=== PATIENT | female | born 1970 | race Caucasian/White ===

== ENCOUNTER 2017-12-18 10:51 | Emergency (ER) | payer MEDICARE, BC ==
[2017-12-18] MEDS ORDERED: Albuterol/Ipratropium 3.0-0.5 MG/3 ML Neb Soln NEB ONE (11:42)
[2017-12-18] MEDS ORDERED: Glucagon,Human Recombinant 1 MG Vial IVPUSH ONE (11:57)
[2017-12-18 12:11] LABS: CHLORIDE,CL 100 mmol/L (101-111); SODIUM,NA 138 mmol/L (135-145)
[2017-12-18 14:19] VITALS: BP 90/54
--- NOTE | 2017-12-21 04:35 | EDM.PDOC ---
Scribed by Cady Pollard 12/18/17 [id number] for Letitia Hay PA-C ED HPI GENERAL MEDICAL PROBLEM - General Chief Complaint: Respiratory Problem Stated Complaint: cold [id number] Time Seen by Provider: 12/18/17 11:30 Source of Information: Reports: Patient, RN, RN Notes Reviewed History Limitations: Reports: No Limitations - History of Present Illness INITIAL COMMENTS - FREE TEXT/NARRATIVE: Patient presents to ER with mouth swelling and difficulty swallowing accompanied by some shortness of breath and chest tightness. She has tried Benadryl and Albuterol inhaler. She has significant surgical history and in the past has had esophageal dilatation. Her last one was in August and she has it done every 3 months. She had one episode of watery emesis today. She says that since this morning she has been having more saliva and feels it is more swallowing saliva. The chest tightness in the past felt like her asthma so that is why she tried the Albuterol. She denies chills or sweats. She has had some subjective feelings of warmth. She has chronic nausea and this is unchanged. She has not had diarrhea or constipation. She also takes Reglan and Zofran every day. Has feeding tube. Notes supplemental feedings daily. Has been eating solid food until today. 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 Treatments, Other Medication(s) (Benadryl) Abdominal Pain Score (Numeric/FACES): 7 - Related Data Allergies Allergy/AdvReac Type Severity Reaction Status Date / Time erythromycin base Allergy Rash Verified 05/19/15 19:18 latex Allergy Rash Verified 05/19/15 19:18 magnesium carbonate Allergy Wheezing Verified 05/19/15 19:18 naproxen [From Naprosyn] Allergy Rash Verified 05/19/15 19:18 prochlorperazine edisylate Allergy Other Verified 05/19/15 19:18 [From Compazine] prochlorperazine maleate Allergy Other Verified 05/19/15 19:18 [From Compazine] Home Meds: Home Meds Acetaminophen 500 mg PO Q6H 08/28/14 [History] Albuterol Sulfate 1.25 mg INH Q4H PRN 08/28/14 [History] Albuterol Sulfate [Albuterol Sulfate HFA] 8.5 gm INH Q4H PRN 08/28/14 [History] Budesonide [Pulmicort] 0.05 mg INH BID PRN 08/28/14 [History] Cholecalciferol (Vitamin D3) [Vitamin D] 50,000 unit PO DAILY 08/28/14 [History] Cyanocobalamin (Vitamin B-12) [Cyanocobalamin Injection] 1,000 mcg SQ ACDINNER 08/28/14 [History] Fluticasone Propionate [Flonase] 50 mcg INH DAILY 08/28/14 [History] Gabapentin [Neurontin] 600 mg PO TID 08/28/14 [History] Levothyroxine [Synthroid] 50 mcg DAILY 08/28/14 [History] Nutritional Supplement [Osmolite 1.5 Siddhartha] 80 ml PO QID 08/28/14 [History] Whey Protein Isolate [Beneprotein] 1 each PO TID 08/28/14 [History] diphenhydrAMINE [Benadryl] 75 mg PO DAILY 08/28/14 [History] fentaNYL [Duragesic] 100 mcg TOP Q72H 08/28/14 [History] LORazepam 1 mg PO QID 02/22/16 [History] Ondansetron [Zofran ODT] 4 mg PO Q6H 02/22/16 [History] Potassium Chloride [Klor-Con] 20 meq PO TID 02/22/16 [History] oxyCODONE 5 mg PO Q4H 02/22/16 [History] Past Medical History Other Cardiovascular History: low blood pressure Respiratory History: Reports: Asthma Gastrointestinal History: Reports: Other (See Below) (gastrectomy. Esophageal dilatation.) Musculoskeletal History: Reports: Other (See Below) (chronic pain) - Past Surgical History Other GI Surgeries/Procedures: Spleenectomy; Gastrostomy Social & Family History - Tobacco Use Smoking Status *Q: Never Smoker Second Hand Smoke Exposure: No - Alcohol Use Days Per Week of Alcohol Use: 0 - Recreational Drug Use Recreational Drug Use: No - Living Situation & Occupation Living situation: Reports: Occupation: Unemployed ED ROS GENERAL - Review of Systems Review Of Systems: ROS reveals no pertinent complaints other than HPI. ED EXAM, GENERAL - Physical Exam Exam: See Below Exam Limited By: No Limitations General Appearance: Alert, WD/WN, No Apparent Distress, Cachetic Eye Exam: Bilateral Eye: EOMI, Normal Inspection, PERRL Ears: Normal External Exam, Normal TMs Nose: Normal Inspection, Normal Mucosa Throat/Mouth: Other (erythematous posterior pharynx without exudate. No tongue swelling. No airway swelling. ) Head: Atraumatic, Normocephalic Neck: Normal Inspection, Lymphadenopathy (L) (anterior cervical ), Lymphadenopathy (R) (anterior cervical) Respiratory/Chest: No Respiratory Distress, Lungs Clear Cardiovascular: Regular Rate, Rhythm, No Murmur GI/Abdominal: Other (thin. PE tube in place. Nontender. ) (Female) Exam: Deferred Rectal (Female) Exam: Deferred Back Exam: Normal Inspection Extremities: Normal Inspection, No Pedal Edema Neurological: Alert, Oriented Psychiatric: Normal Affect, Normal Mood Skin Exam: Warm, Dry, Intact Course - Vital Signs Last Recorded V/S: Last Vital Signs Temp 99.4 F 12/18/17 11:20 Pulse 89 12/18/17 14:12 Resp 16 12/18/17 14:12 BP 90/54 L 12/18/17 14:12 Pulse Ox 97 12/18/17 14:12 - Orders/Labs/Meds Labs: Laboratory Tests 12/18/17 12/18/17 Range/Units 11:46 11:46 WBC 6.5 (5.0-10.0) 10^3/uL RBC 4.29 (4.2-5.4) 10^6/uL Hgb 13.8 (12.0-16.0) g/dL Hct 41.2 (37.0-47.0) % MCV 96.0 (80-100) fL MCH 32.2 (27.0-34.0) pg MCHC 33.5 (33.0-35.0) g/dL Plt Count 285 (150-450) 10^3/uL Neut % (Auto) 68.2 (42.2-75.2) % Lymph % (Auto) 22.5 (20.5-50.1) % [place] % (Auto) 8.3 H (2-8) % Eos % (Auto) 0.8 L (1.0-3.0) % Baso % (Auto) 0.2 (0.0-1.0) % Sodium 138 (135-145) mmol/L Potassium 4.3 (3.6-5.0) mmol/L Chloride 100 L (101-111) mmol/L Carbon Dioxide 30.0 (21.0-31.0) mmol/L Anion Gap 12.3 BUN 6 L (7-18) mg/dL Creatinine 0.6 (0.6-1.3) mg/dL Est Cr Clr Drug Dosing 87.98 mL/min Estimated GFR (MDRD) > 60 BUN/Creatinine Ratio 10.00 Glucose 94 (74-105) mg/dL Calcium 9.7 (8.4-10.2) mg/dl Total Bilirubin 1.0 (0.2-1.0) mg/dL AST 37 (10-42) IU/L ALT 19 (10-60) IU/L Alkaline Phosphatase 123 H (42-121) IU/L Troponin I < 0.02 (0.00-0.02) ng/ml Total Protein 6.8 (6.7-8.2) g/dl Albumin 3.5 (3.2-5.5) g/dl Globulin 3.3 Albumin/Globulin Ratio 1.06 Meds: Medications Discontinued Medications Generic Name Dose Route Start Last Admin Trade Name Freq PRN Reason Stop Dose Admin Albuterol/Ipratropium 3 ml 12/18/17 11:42 12/18/17 11:50 Duoneb 3.0-0.5 Mg/3 Ml NEB 12/18/17 11:43 3 ml ONETIME ONE Administration Glucagon 1 mg 12/18/17 11:57 12/18/17 12:06 Glucagen IVPUSH 12/18/17 11:58 1 mg ONETIME ONE Administration - Re-Assessments/Exams Free Text/Narrative Re-Assessment/Exam: 12/21/17 04:33 Tolerating secretions and small sips water. No signs of angio edema apparent. Departure - Departure Time of Disposition: 14:08 Disposition: Home, Self-Care 01 Condition: Fair Clinical Impression: Esophageal stricture, Allergic sinusitis, S/P gastric bypass Gastroesophageal reflux disease Qualifiers: Esophagitis presence: without esophagitis Qualified Code(s): K21.9 - Gastro- esophageal reflux disease without esophagitis - Discharge Information Instructions: Allergic Rhinitis, Esophageal Stricture Forms: ED Department Discharge Additional Instructions: Prednisone 20mg today then 10mg for 3 days follow up with Primary on Wednesday Urgent follow up if symptoms worsen Increase fluids through Peg tube I have read and agree with the documentation that has been completed regarding this visit. By signing this record, I attest that the documentation was completed in my physical presence and is an accurate record of the encounter.
== END 2017-12-18 14:16 | disposition home or self-care (01) ==
LOC: DL.ED 10:51
DX: K22.2 Esophageal obstruction (principal); J30.9 Allergic rhinitis, unspecified; K21.9 Gastro-esophageal reflux disease without esophagitis; Z98.84 Bariatric surgery status; Z79.899 Other long term (current) drug therapy; Z88.1 Allergy status to other antibiotic agents; Z91.040 Latex allergy status; Z88.8 Allergy status to other drugs, medicaments and biological substances
CPT/HCPCS: 36415; 80053; 84484; 85025; 87081; 87430; 96374; 99284; J1610

== ENCOUNTER 2019-12-02 18:20 | Emergency (ER) | payer BC, MEDICARE ==
[2019-12-02] MEDS ORDERED: Amoxicillin/Clavulanate K 400-57 MG/5 ML Susp 100 ML Bottle PO ONE (18:21)
[2019-12-02 18:41] VITALS: BP 123/89; PULSE 115
--- NOTE | 2019-12-02 19:33 | EDM.PDOC ---
ED HPI GENERAL MEDICAL PROBLEM - General Chief Complaint: General Stated Complaint: SHORTNESS BREATH, TIGHTNESS OF CHEST, JTUBE LEAK. Time Seen by Provider: 12/02/19 19:00 Source of Information: Reports: Patient, RN History Limitations: Reports: No Limitations - History of Present Illness INITIAL COMMENTS - FREE TEXT/NARRATIVE: ED with c/o of sore throat, feels swollen, has noticed this am leaking around J tube lood like "stool", Reports leaking around tube since replaced a year ago. Patient hx of gastric bypass that went wrong and multiple complications since. Essentially complete gastrectomy, still takes some oral though difficulty swallowing. Due to return to [place] for recheck in 2 weeks. Hx of esophageal strictures last dilated in June. Was scoped in August and told was fine. Chin red, reports some drooling at times. Denies leaving house for over past 2 weeks, lives with spouse who also reported to have limited outside interaction. Wearing poor fitting mask. Noted hx of latex allergy and mask has elastic straps. Occasional cough from reflux. has no local primary care. States has not been seen in or [place]. Receives narcotic refills from [facility]. Tried nebulizer at home and did not seem to help much. Generalized Pain Score (Numeric/FACES): 3 - Related Data Allergies Allergy/AdvReac Type Severity Reaction Status Date / Time erythromycin base Allergy Rash Verified 12/02/19 18:40 latex Allergy Rash Verified 12/02/19 18:40 magnesium carbonate Allergy Wheezing Verified 12/02/19 18:40 naproxen [From Naprosyn] Allergy Rash Verified 12/02/19 18:40 prochlorperazine edisylate Allergy Other Verified 12/02/19 18:40 [From Compazine] prochlorperazine maleate Allergy Other Verified 12/02/19 18:40 [From Compazine] Home Meds: Home Meds Acetaminophen 500 mg PO Q6H 08/28/14 [History] Albuterol Sulfate 1.25 mg INH Q4H PRN 08/28/14 [History] Albuterol Sulfate [Albuterol Sulfate HFA] 8.5 gm INH Q4H PRN 08/28/14 [History] Budesonide [Pulmicort] 0.05 mg INH BID PRN 08/28/14 [History] Cholecalciferol (Vitamin D3) [Vitamin D] 50,000 unit PO DAILY 08/28/14 [History] Cyanocobalamin (Vitamin B-12) [Cyanocobalamin Injection] 1,000 mcg SQ ACDINNER 08/28/14 [History] Fluticasone Propionate [Flonase] 50 mcg INH DAILY 08/28/14 [History] Gabapentin [Neurontin] 600 mg PO TID 08/28/14 [History] Levothyroxine [Synthroid] 50 mcg DAILY 08/28/14 [History] Nutritional Supplement [Osmolite 1.5 Siddhartha] 80 ml PO QID 08/28/14 [History] Whey Protein Isolate [Beneprotein] 1 each PO TID 08/28/14 [History] diphenhydrAMINE [Benadryl] 75 mg PO DAILY 08/28/14 [History] fentaNYL [Duragesic] 100 mcg TOP Q72H 08/28/14 [History] LORazepam 1 mg PO QID 02/22/16 [History] Ondansetron [Zofran ODT] 4 mg PO Q6H 02/22/16 [History] Potassium Chloride [Klor-Con] 20 meq PO TID 02/22/16 [History] oxyCODONE 5 mg PO Q4H 02/22/16 [History] Past Medical History Other Cardiovascular History: low blood pressure Respiratory History: Reports: Asthma Gastrointestinal History: Reports: Other (See Below) Musculoskeletal History: Reports: Other (See Below) Endocrine/Metabolic History: Reports: Hypothyroidism - Past Surgical History HEENT Surgical History: Reports: Adenoidectomy, Tonsillectomy Other GI Surgeries/Procedures: Spleenectomy; Gastrostomy Female Surgical History: Reports: Section, Tubal Ligation Social & Family History - Tobacco Use Smoking Status *Q: Never Smoker - Caffeine Use Caffeine Use: Reports: Coffee, Soda, Tea - Recreational Drug Use Recreational Drug Use: No - Living Situation & Occupation Living situation: Reports: Occupation: Unemployed ED ROS GENERAL - Review of Systems Review Of Systems: Comprehensive ROS is negative, except as noted in HPI. ED EXAM, GENERAL - Physical Exam Exam: See Below Exam Limited By: No Limitations General Appearance: Alert, Anxious, Cachetic Eye Exam: Bilateral Eye: EOMI Ears: Normal External Exam Nose: Normal Inspection Throat/Mouth: No Airway Compromise, Other (dry) Head: Atraumatic, Normocephalic Neck: Normal Inspection. No: Lymphadenopathy (L), Lymphadenopathy (R) Respiratory/Chest: No Respiratory Distress, Lungs Clear, Other (rare bronchial cough) Cardiovascular: Normal Peripheral Pulses, Regular Rate, Rhythm, Tachycardia GI/Abdominal: Normal Bowel Sounds, Soft, Other (J tube site red moist excoriated ). No: Distended, Tender Extremities: Normal Range of Motion Neurological: Alert, Oriented, Normal Cognition Skin Exam: Other (chin pink, dry, lips dry, Jtube site moist no obvious seepage around tube, no discharge, yeast type appearance. no dressing between stoma and tube. ) Course - Vital Signs Last Recorded V/S: Last Vital Signs Temp 97.1 F 12/02/19 18:40 Pulse 115 H 12/02/19 18:40 Resp 16 12/02/19 18:40 BP 123/89 12/02/19 18:40 Pulse Ox 100 12/02/19 18:40 - Orders/Labs/Meds Orders: Active Orders 24 hr Category Date Time Status Glucose [Blood Glucose Check, Bedside] [RC] ONETIME Care 12/02/19 20:57 Active CULTURE BLOOD [BC] Stat Lab 12/02/19 19:15 Results CULTURE BLOOD [BC] Stat Lab 12/02/19 19:20 Received Blood Culture x2 Reflex Set [OM.PC] Stat Oth 12/02/19 19:05 Ordered Labs: Laboratory Tests 12/02/19 12/02/19 12/02/19 Range/Units 19:15 19:15 19:15 WBC 10.8 H (5.0-10.0) 10^3/uL RBC 3.99 L (4.2-5.4) 10^6/uL Hgb 12.9 (12.0-16.0) g/dL Hct 37.3 (37.0-47.0) % MCV 93.5 (80-100) fL MCH 32.3 (27.0-34.0) pg MCHC 34.6 (33.0-35.0) g/dL Plt Count 285 (150-450) 10^3/uL Neut % (Auto) 62.5 (42.2-75.2) % Lymph % (Auto) 25.6 (20.5-50.1) % [place] % (Auto) 10.8 H (2-8) % Eos % (Auto) 0.8 L (1.0-3.0) % Baso % (Auto) 0.3 (0.0-1.0) % Sodium 136 (136-145) mmol/L Potassium 3.5 (3.5-5.1) mmol/L Chloride 98 (98-107) mmol/L Carbon Dioxide 24 (21-32) mmol/L Anion Gap 17.5 H (7-13) mEq/L BUN 13 (7-18) mg/dL Creatinine 0.69 (0.55-1.02) mg/dL Est Cr Clr Drug Dosing 63.14 mL/min Estimated GFR (MDRD) > 60 BUN/Creatinine Ratio 18.8 (No establ ref range) Glucose 73 L (74-99) mg/dL Lactic Acid 1.4 (0.4-2.0) mmol/L Calcium 8.7 (8.5-10.1) mg/dL Magnesium 1.4 L (1.8-2.4) mg/dL Total Bilirubin 0.3 (0.2-1.0) mg/dL AST 27 (15-37) U/L ALT 31 (14-59) U/L Alkaline Phosphatase 139 H (46-116) U/L C-Reactive Protein 5.1 H (0.0-0.9) mg/dL Total Protein 6.0 L (6.4-8.2) g/dL Albumin 3.1 L (3.4-5.0) g/dL Globulin 2.9 Albumin/Globulin Ratio 1.07 Amylase 32 (25-115) U/L Lipase 68 L (73-393) U/L Meds: Medications Discontinued Medications Generic Name Dose Route Start Last Admin Trade Name Freq PRN Reason Stop Dose Admin Amoxicillin/Clavulanate Potassium Confirm 12/02/19 21:40 12/02/19 22:19 Augmentin 400 Mg/5 Ml Susp Administered 12/02/19 21:41 Not Given Dose 8,000 mg .ROUTE .STK-MED ONE Diphenhydramine HCl 25 mg 12/02/19 19:52 12/02/19 20:03 Benadryl IVPUSH 12/02/19 19:53 25 mg ONETIME ONE Administration Sodium Chloride 1,000 mls @ 500 mls/hr 12/02/19 19:53 12/02/19 20:05 Normal Saline IV 12/02/19 21:52 500 mls/hr .BOLUS ONE Administration Iopamidol 100 ml 12/02/19 20:12 12/02/19 20:19 Isovue-300 (61%) IVPUSH 12/02/19 20:13 75 ml ONETIME ONE Administration Methylprednisolone Sodium Succinate 62.5 mg 12/02/19 20:45 12/02/19 20:56 Solu-Medrol IVPUSH 12/02/19 20:46 62.5 mg ONETIME ONE Administration - Radiology Interpretation Free Text/Narrative:: CXR clear see report, CT abdomen and pelvis See report. Noted early LLL pneumonia. - Re-Assessments/Exams Free Text/Narrative Re-Assessment/Exam: 12/02/19 20:47 Patient reporting no improvement with benadryl throat feel very tight swollen. Discussed risks involved with steroids and suprression of immune system and being placed at higher risk Patient verbalizes understanding and states wants steroid. Reports improvement, calmer, Continues to talk full sentences, Rare cough. IV fluid infused Ct not demonstrating and obvious fistula. No drainage noted at tube site. Departure - Departure Time of Disposition: 21:27 Disposition: Home, Self-Care 01 Condition: Fair Clinical Impression: Yeast dermatitis, Hx of gastric bypass, History of gastrectomy, Jejunostomy tube present LLL pneumonia Qualifiers: Pneumonia type: due to unspecified organism Qualified Code(s): J18.9 - Pneumonia, unspecified organism - Discharge Information *PRESCRIPTION DRUG MONITORING PROGRAM REVIEWED*: No *COPY OF PRESCRIPTION DRUG MONITORING REPORT IN PATIENT MARISOL: No Instructions: Skin Yeast Infection Forms: ED Department Discharge Additional Instructions: nystatin around J tube site wash area frequently around tube and pat dry continue previous home medications nebulizer every 4 hours if helps urgent follow up if difficulty breathing OTC robitusin or muccinex increase liquids in tube feedings limit oral intake with increased risk for aspiration [id number]/57/5ml give 10ml via J tube twice daily Follow up with Primary care in am Sepsis Event Note - Evaluation Sepsis Screening Result: No Definite Risk - Focused Exam Vital Signs: Vital Signs Temp Pulse Resp BP Pulse Ox 12/02/19 18:40 97.1 F 115 H 16 123/89 100 Date Exam was Performed: 12/03/19 Time Exam was Performed: 04:29 - My Orders Last 24 Hours: My Active Orders 12/02/19 19:05 Blood Culture x2 Reflex Set [OM.PC] Stat 12/02/19 19:15 CULTURE BLOOD [BC] Stat 12/02/19 19:20 CULTURE BLOOD [BC] Stat 12/02/19 20:57 Glucose [Blood Glucose Check, Bedside] [RC] ONETIME - Assessment/Plan Last 24 Hours: My Active Orders 12/02/19 19:05 Blood Culture x2 Reflex Set [OM.PC] Stat 12/02/19 19:15 CULTURE BLOOD [BC] Stat 12/02/19 19:20 CULTURE BLOOD [BC] Stat 12/02/19 20:57 Glucose [Blood Glucose Check, Bedside] [RC] ONETIME
[2019-12-02 19:38] LABS: ANION GAP 17.5 mEq/L (7-13); CHLORIDE,CL 98 mmol/L (98-107); SODIUM,NA 136 mmol/L (136-145)
[2019-12-02] MEDS ORDERED: diphenhydrAMINE 50 MG/ML SDV IVPUSH ONE (19:52)
[2019-12-02] MEDS ORDERED: Sodium Chloride 0.9% 1,000 ML IV ONE (19:53)
[2019-12-02] MEDS ORDERED: Iopamidol 612 MG/ML 100 ML Bottle IVPUSH ONE (20:12)
[2019-12-02] MEDS ORDERED: methylPREDNISolone Sodium Succinate 125 MG/2 ML SDV IVPUSH ONE (20:45)
[2019-12-02] MEDS ORDERED: Amoxicillin/Clavulanate K 400-57 MG/5 ML Susp 100 ML Bottle ONE (21:40)
== END 2019-12-02 22:25 | disposition home or self-care (01) ==
LOC: DL.ED 18:20
DX: J18.9 Pneumonia, unspecified organism (principal); B37.2 Candidiasis of skin and nail; Z93.4 Other artificial openings of gastrointestinal tract status; Z88.1 Allergy status to other antibiotic agents; Z91.040 Latex allergy status; Z88.5 Allergy status to narcotic agent; J45.909 Unspecified asthma, uncomplicated; E03.9 Hypothyroidism, unspecified; Z79.899 Other long term (current) drug therapy
CPT/HCPCS: 36415; 71046; 74177; 80053; 82150; 83605; 83690; 83735; 85025; 86140; 87040; 87210; 96361; 96374; 96375; 99284; A9270; J1200; J2930; J7030; Q9967

== ENCOUNTER 2020-03-23 19:11 | Emergency (ER) | payer BC, MEDICARE ==
[2020-03-23 19:21] VITALS: PULSE 135
--- NOTE | 2020-03-23 19:51 | EDM.PDOC ---
ED HPI GENERAL MEDICAL PROBLEM - General Chief Complaint: ENT Problem Stated Complaint: HARD TIME SWALLOWING Time Seen by Provider: 03/23/20 19:47 Source of Information: Reports: Patient History Limitations: Reports: No Limitations - History of Present Illness INITIAL COMMENTS - FREE TEXT/NARRATIVE: gives h/o throat problems but this time feels different. onset this AM and ate nothing prior. feels it is swollen able to swallow ok initially but now seems more difficult. - Related Data Allergies Allergy/AdvReac Type Severity Reaction Status Date / Time erythromycin base Allergy Rash Verified 03/23/20 19:36 latex Allergy Rash Verified 03/23/20 19:36 magnesium carbonate Allergy Wheezing Verified 03/23/20 19:36 metoclopramide [From Reglan] Allergy Other Verified 03/23/20 19:36 naproxen [From Naprosyn] Allergy Rash Verified 03/23/20 19:36 prochlorperazine edisylate Allergy Other Verified 03/23/20 19:36 [From Compazine] prochlorperazine maleate Allergy Other Verified 03/23/20 19:36 [From Compazine] Home Meds: Home Meds Acetaminophen 500 mg PO Q6H 08/28/14 [History] Albuterol Sulfate 1.25 mg INH Q4H PRN 08/28/14 [History] Albuterol Sulfate [Albuterol Sulfate HFA] 8.5 gm INH Q4H PRN 08/28/14 [History] Cyanocobalamin (Vitamin B-12) [Cyanocobalamin Injection] 1,000 mcg SQ ACDINNER 08/28/14 [History] Fluticasone Propionate [Flonase] 50 mcg INH DAILY 08/28/14 [History] Gabapentin [Neurontin] 600 mg PO TID 08/28/14 [History] Levothyroxine [Synthroid] 50 mcg DAILY 08/28/14 [History] diphenhydrAMINE [Benadryl] 75 mg PO DAILY 08/28/14 [History] Ondansetron [Zofran ODT] 4 mg PO Q6H 02/22/16 [History] Potassium Chloride [Klor-Con] 20 meq PO BID 02/22/16 [History] Aspirin/Acetaminophen/Caffeine [Excedrin Extra Strength Caplet] 1 each PO DAILY 03/23/20 [History] Linaclotide [Linzess] 72 mcg PO DAILY 03/23/20 [History] predniSONE [Prednisone] 10 mg PO BID 03/23/20 [History] Past Medical History Other Cardiovascular History: low blood pressure Respiratory History: Reports: Asthma Gastrointestinal History: Reports: Other (See Below) Other Gastrointestinal History: part of esophagus removed, part of small intestine removed [employer] History: Reports: Musculoskeletal History: Reports: Osteoporosis Endocrine/Metabolic History: Reports: Hypothyroidism Hematologic History: Reports: B12 Deficiency Oncologic (Cancer) History: Reports: Leukemia - Past Surgical History HEENT Surgical History: Reports: Adenoidectomy, Tonsillectomy GI Surgical History: Reports: Cholecystectomy, EGD, Other (See Below) Other GI Surgeries/Procedures: Spleenectomy; Gastrostomy Female Surgical History: Reports: Section, Tubal Ligation Social & Family History - Tobacco Use Smoking Status *Q: Never Smoker Second Hand Smoke Exposure: No - Caffeine Use Caffeine Use: Reports: Coffee, Soda - Recreational Drug Use Recreational Drug Use: No - Living Situation & Occupation Living situation: Reports: Occupation: Unemployed ED ROS ENT - Review of Systems Review Of Systems: Comprehensive ROS is negative, except as noted in HPI. ED EXAM, ENT - Physical Exam Exam: See Below Exam Limited By: No Limitations General Appearance: Alert, WD/WN, No Apparent Distress, Other (txting but c/o throat feels swollen) Ears: Hearing Grossly Normal Mouth/Throat: Normal Inspection, Normal Oropharynx. No: Drooling, Hoarse Voice, Lip Swelling, Oral Ulcers, Pharyngeal Erythema, Throat Swelling, Tongue Swelling, Tonsillar Erythema, Trismus, Uvular Deviation, Uvular Edema Head: Atraumatic Neck: Normal Inspection, Non-Tender, Full Range of Motion Respiratory/Chest: No Respiratory Distress, Lungs Clear, Normal Breath Sounds Cardiovascular: Regular Rate, Rhythm GI/Abdominal: Soft, Non-Tender Neurological: Alert, Oriented, Normal Cognition, Normal Gait, No Motor/Sensory Deficits Psychiatric: Normal Affect, Normal Mood Skin: Warm, Dry, Normal Color Lymphatic: No Adenopathy Course - Vital Signs Last Recorded V/S: Last Vital Signs Temp 36.3 C 03/23/20 19:20 Pulse 135 H 03/23/20 19:20 Resp 18 03/23/20 20:18 BP 98/77 03/23/20 20:18 Pulse Ox 100 03/23/20 20:18 - Orders/Labs/Meds Labs: Laboratory Tests 03/23/20 03/23/20 Range/Units 20:10 20:10 WBC 8.4 (5.0-10.0) 10^3/uL RBC 3.98 L (4.2-5.4) 10^6/uL Hgb 12.7 (12.0-16.0) g/dL Hct 38.0 (37.0-47.0) % MCV 95.5 (80-100) fL MCH 31.9 (27.0-34.0) pg MCHC 33.4 (33.0-35.0) g/dL Plt Count 298 (150-450) 10^3/uL Neut % (Auto) 77.0 H (42.2-75.2) % Lymph % (Auto) 16.1 L (20.5-50.1) % [place] % (Auto) 6.8 (2-8) % Eos % (Auto) 0.0 L (1.0-3.0) % Baso % (Auto) 0.1 (0.0-1.0) % Sodium 142 (136-145) mmol/L Potassium 4.6 (3.5-5.1) mmol/L Chloride 104 (98-107) mmol/L Carbon Dioxide 33 H (21-32) mmol/L Anion Gap 9.6 (7-13) mEq/L BUN 15 (7-18) mg/dL Creatinine 0.90 (0.55-1.02) mg/dL Est Cr Clr Drug Dosing 45.52 mL/min Estimated GFR (MDRD) > 60 BUN/Creatinine Ratio 16.7 (No establ ref range) Glucose 106 H (74-99) mg/dL Calcium 8.6 (8.5-10.1) mg/dL Total Bilirubin 0.2 (0.2-1.0) mg/dL AST 45 H (15-37) U/L ALT 40 (14-59) U/L Alkaline Phosphatase 200 H (46-116) U/L Total Protein 5.8 L (6.4-8.2) g/dL Albumin 3.1 L (3.4-5.0) g/dL Globulin 2.7 Albumin/Globulin Ratio 1.15 Meds: Medications Discontinued Medications Generic Name Dose Route Start Last Admin Trade Name Freq PRN Reason Stop Dose Admin Iopamidol 50 ml 03/23/20 20:41 Isovue-300 (61%) IVPUSH 03/23/20 20:42 ONETIME ONE Iopamidol 50 ml 03/23/20 20:47 Isovue-300 (61%) IVPUSH 03/23/20 20:48 ONETIME ONE Methylprednisolone Sodium Succinate 125 mg 03/23/20 20:26 03/23/20 20:38 Solu-Medrol IVPUSH 03/23/20 20:27 125 mg ONETIME ONE Administration - Re-Assessments/Exams Free Text/Narrative Re-Assessment/Exam: 03/23/20 21:44 results discussed with pt. Departure - Departure Time of Disposition: 21:46 Disposition: Home, Self-Care 01 Condition: Good Clinical Impression: Globus pharyngeus - Discharge Information Forms: ED Department Discharge Additional Instructions: 1) follow up with family doctor Sepsis Event Note (ED) - Evaluation Sepsis Screening Result: No Definite Risk - Focused Exam Vital Signs: Vital Signs Temp Pulse Resp BP Pulse Ox 03/23/20 20:18 18 98/77 100 03/23/20 19:20 36.3 C 135 H 18 142/75 H 96
[2020-03-23 20:19] VITALS: BP 98/77
[2020-03-23] MEDS ORDERED: methylPREDNISolone Sodium Succinate 125 MG/2 ML SDV IVPUSH ONE (20:26)
[2020-03-23 20:36] LABS: ANION GAP 9.6 mEq/L (7-13); CHLORIDE,CL 104 mmol/L (98-107); SODIUM,NA 142 mmol/L (136-145)
[2020-03-23] MEDS ORDERED: Iopamidol 612 MG/ML 50 ML SDV IVPUSH ONE (20:47)
--- NOTE | 2020-03-23 21:36 | CT ---
PROCEDURE INFORMATION: Exam: CT Neck With Contrast Exam date and time: 03/23/2020 8:47 PM Age: 50 years old Clinical indication: Other: Trouble swallowing; Additional info: Throat swollen TECHNIQUE: Imaging protocol: Computed tomography images of the neck with intravenous contrast. Radiation optimization: All CT scans at this facility use at least one of these dose optimization techniques: automated exposure control; mA and/or kV adjustment per patient size (includes targeted exams where dose is matched to clinical indication); or iterative reconstruction. Contrast material: [id number]; Contrast volume: 75 ml; Contrast route: INTRAVENOUS (IV); COMPARISON: No relevant prior studies available. FINDINGS: Nasopharynx: Unremarkable. Oropharynx: Unremarkable. No significant tonsillar enlargement. Hypopharynx: Unremarkable. Larynx: Unremarkable. Normal epiglottis. Retropharyngeal space: Unremarkable. Submandibular/Parotid glands: Normal. Glands are normal in size. Thyroid: Normal. No enlarged or calcified nodules. Lymph nodes: Unremarkable. No lymphadenopathy. Trachea: Visualized trachea is unremarkable. Lungs: Mild scarring in the lung apices. Esophagus: The visualized superior esophagus is mildly distended with air and fluid but is nondilated. Bones/joints: Unremarkable. No acute fracture. Soft tissues: Unremarkable. No significant soft tissue swelling. IMPRESSION: Superior esophagus is mildly distended with air and fluid but is nondilated. Esophagus may be further assessed with fluoroscopic esophagram, CT chest, or upper endoscopy, if clinically indicated.
[2020-03-25] MEDS: Iopamidol 612 MG/ML 50 ML SDV IVPUSH ONE ×2 (13:21→13:28)
== END 2020-03-23 22:01 | disposition home or self-care (01) ==
LOC: DL.ED 19:11
DX: R09.89 Other specified symptoms and signs involving the circulatory and respiratory systems (principal); J45.909 Unspecified asthma, uncomplicated; E03.9 Hypothyroidism, unspecified; Z88.1 Allergy status to other antibiotic agents; Z91.040 Latex allergy status; Z88.8 Allergy status to other drugs, medicaments and biological substances; Z79.899 Other long term (current) drug therapy; Z79.82 Long term (current) use of aspirin
CPT/HCPCS: 36415; 70491; 80053; 85025; 96374; 99283; J2930

== ENCOUNTER 2020-04-17 06:14 | Emergency (ER) | payer BC, MEDICARE ==
[2020-04-17 06:26] VITALS: BP 124/83; PULSE 114
--- NOTE | 2020-04-17 07:25 | EDM.PDOC ---
ED HPI GENERAL MEDICAL PROBLEM - General Chief Complaint: Allergic Reaction Stated Complaint: ORAL SURGERY 04/16 THROAT CLOSING ALLERGIES Time Seen by Provider: 04/17/20 07:10 Source of Information: Reports: Patient History Limitations: Reports: No Limitations - History of Present Illness INITIAL COMMENTS - FREE TEXT/NARRATIVE: This 50 yo female patient reports to the ED with throat swelling and the inability to swallow. The patient reports she had oral surgery yesterday in [place] and was feeling great for the first 9 hours after surgery, but noticed difficulties swallowing this morning. The patient reports she has been seen for these symptoms numerous times in the past (03/23/20 at [facility] ED, 04/14/[address] [facility] ED, 04/15/20 by Rolando Flores and 04/16/20 by Rolando Flores). The patient reports she is having similar problems today. The patient has been able to swallow water, but finds it difficult to swallow saliva. Onset: Today Duration: Constant Location: Reports: Neck Quality: Reports: Dull Severity: Moderate Improves with: Reports: None Worsens with: Reports: None Context: Reports: Other Associated Symptoms: Reports: No Other Symptoms - Related Data Allergies Allergy/AdvReac Type Severity Reaction Status Date / Time erythromycin base Allergy Rash Verified 04/17/20 06:22 latex Allergy Rash Verified 04/17/20 06:22 magnesium carbonate Allergy Wheezing Verified 04/17/20 06:22 metoclopramide [From Reglan] Allergy Other Verified 04/17/20 06:22 naproxen [From Naprosyn] Allergy Rash Verified 04/17/20 06:22 prochlorperazine edisylate Allergy Other Verified 04/17/20 06:22 [From Compazine] prochlorperazine maleate Allergy Other Verified 04/17/20 06:22 [From Compazine] Home Meds: Home Meds Acetaminophen 500 mg PO Q6H 08/28/14 [History] Albuterol Sulfate 1.25 mg INH Q4H PRN 08/28/14 [History] Albuterol Sulfate [Albuterol Sulfate HFA] 8.5 gm INH Q4H PRN 08/28/14 [History] Cyanocobalamin (Vitamin B-12) [Cyanocobalamin Injection] 1,000 mcg SQ ACDINNER 08/28/14 [History] Fluticasone Propionate [Flonase] 50 mcg INH DAILY 08/28/14 [History] Gabapentin [Neurontin] 600 mg PO TID 08/28/14 [History] Levothyroxine [Synthroid] 50 mcg DAILY 08/28/14 [History] diphenhydrAMINE [Benadryl] 75 mg PO DAILY 08/28/14 [History] Ondansetron [Zofran ODT] 4 mg PO Q6H 02/22/16 [History] Potassium Chloride [Klor-Con] 20 meq PO BID 02/22/16 [History] Aspirin/Acetaminophen/Caffeine [Excedrin Extra Strength Caplet] 1 each PO DAILY 03/23/20 [History] Linaclotide [Linzess] 72 mcg PO DAILY 03/23/20 [History] predniSONE [Prednisone] 10 mg PO BID 03/23/20 [History] Past Medical History Other Cardiovascular History: low blood pressure Respiratory History: Reports: Asthma Gastrointestinal History: Reports: Other (See Below) Other Gastrointestinal History: part of esophagus removed, part of small intestine removed [employer] History: Reports: Musculoskeletal History: Reports: Osteoporosis Endocrine/Metabolic History: Reports: Hypothyroidism Hematologic History: Reports: B12 Deficiency Oncologic (Cancer) History: Reports: Leukemia - Past Surgical History HEENT Surgical History: Reports: Adenoidectomy, Tonsillectomy GI Surgical History: Reports: Bariatric Procedure, Cholecystectomy, EGD, Other (See Below) Other GI Surgeries/Procedures: Spleenectomy; Gastrostomy Female Surgical History: Reports: Section, Tubal Ligation Social & Family History - Tobacco Use Smoking Status *Q: Unknown Ever Smoked - Caffeine Use Caffeine Use: Reports: Coffee - Recreational Drug Use Recreational Drug Use: No - Living Situation & Occupation Living situation: Reports: Occupation: Unemployed ED ROS ALLERGIC REACTION - Review of Systems Review Of Systems: Comprehensive ROS is negative, except as noted in HPI. ED EXAM GENERAL NO PERIP PULSE - Physical Exam Exam: See Below Exam Limited By: No Limitations General Appearance: Alert, WD/WN, Moderate Distress, Thin Eye Exam: Bilateral Eye: EOMI, Normal Inspection, PERRL Ears: Normal External Exam, Normal Canal, Hearing Grossly Normal, Normal TMs Nose: Normal Inspection, Normal Mucosa, No Blood Throat/Mouth: Normal Lips, Normal Teeth, Normal Gums, Other (some redness of the posterior pharynx, but no evidence of swelling.) Head: Atraumatic, Normocephalic Neck: Other (mild swelling of the anterior throat (patient has been rubbing the area since she got up this morning)) Respiratory/Chest: No Respiratory Distress, Lungs Clear, Normal Breath Sounds, No Accessory Muscle Use, Chest Non-Tender Cardiovascular: Normal Peripheral Pulses, Regular Rate, Rhythm, No Edema, No Gallop, No JVD, No Murmur, No Rub GI/Abdominal: Normal Bowel Sounds, Soft, Non-Tender, No Organomegaly, No Distention, No Abnormal Bruit, No Mass (Female) Exam: Deferred Rectal (Female) Exam: Deferred Back Exam: Normal Inspection, Full Range of Motion, NT Extremities: Normal Inspection, Normal Range of Motion, Non-Tender, Normal Capillary Refill, No Pedal Edema Neurological: Alert, Oriented, CN II-XII Intact, Normal Cognition, Normal Gait, Normal Reflexes, No Motor/Sensory Deficits Psychiatric: Normal Affect, Normal Mood Skin Exam: Warm, Dry, Normal Color, No Rash Lymphatic: No Adenopathy Course - Vital Signs Last Recorded V/S: Last Vital Signs Temp 36.2 C 04/17/20 06:25 Pulse 114 H 04/17/20 06:25 Resp 16 04/17/20 06:25 BP 124/83 04/17/20 06:25 Pulse Ox 100 04/17/20 06:25 Departure - Departure Time of Disposition: 07:26 Disposition: Home, Self-Care 01 Condition: Fair Clinical Impression: Thick saliva Difficulty swallowing Qualifiers: Dysphagia type: esophageal phase Qualified Code(s): R13.10 - Dysphagia, unspecified - Discharge Information *PRESCRIPTION DRUG MONITORING PROGRAM REVIEWED*: Not Applicable *COPY OF PRESCRIPTION DRUG MONITORING REPORT IN PATIENT MARISOL: Not Applicable Care Plan Goals: The patient was encouraged to sip on cool water to help move secretions. The patient was encouraged to call the surgeon's office from yesterday to report her current symptoms. If the patient has any additional symptoms or concerns, the patient should return to the emergency department, follow-up with her specialist or visit her primary care facility. Sepsis Event Note (ED) - Evaluation Sepsis Screening Result: No Definite Risk - Focused Exam Vital Signs: Vital Signs Temp Pulse Resp BP Pulse Ox 04/17/20 06:25 36.2 C 114 H 16 124/83 100
== END 2020-04-17 07:35 | disposition home or self-care (01) ==
LOC: DL.ED 06:14
DX: R13.10 Dysphagia, unspecified (principal); R85.89 Other abnormal findings in specimens from digestive organs and abdominal cavity; J45.909 Unspecified asthma, uncomplicated; E03.9 Hypothyroidism, unspecified; Z79.82 Long term (current) use of aspirin; Z88.1 Allergy status to other antibiotic agents; Z91.040 Latex allergy status; Z79.899 Other long term (current) drug therapy; Z88.8 Allergy status to other drugs, medicaments and biological substances
CPT/HCPCS: 99283

== ENCOUNTER 2020-05-08 14:44 | Emergency (ER) | payer BC, MEDICARE ==
[2020-05-08] MEDS ORDERED: Sodium Chloride 0.9% 10 ML Syringe FLUSH PRN (15:40)
[2020-05-08] MEDS ORDERED: Ondansetron 4 MG/2 ML SDV IV ONE (15:41)
[2020-05-08] MEDS ORDERED: Sodium Chloride 0.9% 500 ML IV SCH (15:45)
[2020-05-08 15:52] VITALS: PULSE 77
[2020-05-08 16:26] LABS: ANION GAP 7.1 mEq/L (7-13); CHLORIDE,CL 100 mmol/L (98-107); SODIUM,NA 142 mmol/L (136-145)
[2020-05-08] MEDS ORDERED: Potassium Chloride 10 MEQ in Premix Bag 1 BAG IV ONE (16:30)
[2020-05-08] MEDS ORDERED: Lidocaine 1% 30 ML SDV ONE (16:34)
[2020-05-08] MEDS ORDERED: Iopamidol 612 MG/ML 50 ML SDV IVPUSH ONE (16:35)
[2020-05-08] MEDS ORDERED: Iopamidol 612 MG/ML 100 ML Bottle IVPUSH ONE (16:45)
--- NOTE | 2020-05-08 17:28 | CR ---
PROCEDURE INFORMATION: Exam: XR Left Ribs Exam date and time: 05/08/2020 4:54 PM Age: 50 years old Clinical indication: Chest wall pain; Left; Additional info: Fall, left rib/chest wall pain TECHNIQUE: Imaging protocol: XR Left ribs. Views: 2 views. COMPARISON: CR Chest 2V 12/02/2019 7:19 PM FINDINGS: Bones/joints: No acute fracture or dislocation. Soft tissues: Normal. IMPRESSION: No acute osseous process.
--- NOTE | 2020-05-08 17:34 | CT ---
PROCEDURE INFORMATION: Exam: CT Abdomen And Pelvis With Contrast Exam date and time: 05/08/2020 4:43 PM Age: 50 years old Clinical indication: Pain and injury or trauma; Fall; Initial encounter; Abrasion; Abdominal pain; Additional info: Abdominal pain poss. Sbo, also L hip pain S/P fall TECHNIQUE: Imaging protocol: Computed tomography of the abdomen and pelvis with intravenous contrast. Radiation optimization: All CT scans at this facility use at least one of these dose optimization techniques: automated exposure control; mA and/or kV adjustment per patient size (includes targeted exams where dose is matched to clinical indication); or iterative reconstruction. Contrast material: ISOVUE 300; Contrast volume: 75 ml; Contrast route: INTRAVENOUS (IV); COMPARISON: CT Abdomen Pelvis w Cont 12/02/2019 8:04 PM FINDINGS: Tubes, catheters and devices: Percutaneous J-tube again noted. Bowel gas pattern nonobstructive. Liver: Normal. No mass. Gallbladder and bile ducts: Gallbladder surgically absent. Pancreas: Normal. No ductal dilation. Spleen: Normal. No splenomegaly. Adrenals: Normal. No mass. Kidneys and ureters: Normal. No hydronephrosis. Stomach and bowel: Bowel gas pattern nonobstructive Appendix: No evidence of appendicitis. Intraperitoneal space: Unremarkable. No free air. No significant fluid collection. Vasculature: There is also now left ovarian venous thrombosis extending up into the left renal vein.. No abdominal aortic aneurysm. Lymph nodes: Unremarkable. No enlarged lymph nodes. Bladder: Unremarkable as visualized. Reproductive: Unremarkable as visualized. Bones/joints: There is an acute fracture through the left inferior pubic ramus. Stable appearance to old mild L4 compression fracture deformity. Remaining vertebral body heights are preserved. Soft tissues: Unremarkable. IMPRESSION: 1. No evidence of solid abdominal organ injury 2. Acute left inferior pubic ramus fracture. 3. Age indeterminate left ovarian venous thrombosis extending up into the left renal vein.
[2020-05-08] MEDS ORDERED: HYDROmorphone 1 MG/ML Syringe IVPUSH ONE (17:45)
[2020-05-08] MEDS ORDERED: Pantoprazole 40 MG Vial IVPUSH ONE (17:45)
--- NOTE | 2020-05-08 18:31 | EDM.PDOC ---
Scribed by Cady Pollard 05/08/20 1538 for Desmond Duffy MD ED HPI GENERAL MEDICAL PROBLEM - General Chief Complaint: Lower Extremity Injury/Pain Stated Complaint: FELL LEFT HIP/PELVIS PAIN, ACID REFLUX W/NAUSEA VOMITING Time Seen by Provider: 05/08/20 15:38 Source of Information: Reports: Patient, Old Records, RN, RN Notes Reviewed - History of Present Illness INITIAL COMMENTS - FREE TEXT/NARRATIVE: Pt presents to ER with complaints of abdominal pain, acid reflux, and pain to the left ribs and left hip. Pt states she has been dealing with indigestion and acid reflux with nausea and vomiting for 3 weeks, and today the pain was so bad that she fell. She landed on her left hip and left ribs, didn't hit her head or any lose of consciousness. Pt states her new doctor took her off of Carafate and Omeprazole last month and the resulting acid pain and nausea has been "disastrous". She has a feeding tube but also has some oral intake. She thinks she might have a bowel blockage/obstruction because of abdominal and pelvic pain, and is certain that she is dehydrated. Denies fever, cough, diarrhea, or constipation. She weighs 71lbs, complicated past medical & surgical Hx reviewed by me. Onset: Gradual Duration: Constant, Getting Worse Location: Reports: Chest, Abdomen, Pelvis, Lower Extremity, Left Quality: Reports: Ache, Burning Severity: Severe Improves with: Reports: None Worsens with: Reports: Eating, Movement Associated Symptoms: Reports: No Other Symptoms - Related Data Allergies Allergy/AdvReac Type Severity Reaction Status Date / Time erythromycin base Allergy Rash Verified 05/08/20 15:27 latex Allergy Rash Verified 05/08/20 15:27 magnesium carbonate Allergy Wheezing Verified 05/08/20 15:27 metoclopramide [From Reglan] Allergy Other Verified 05/08/20 15:27 naproxen [From Naprosyn] Allergy Rash Verified 05/08/20 15:27 prochlorperazine edisylate Allergy Other Verified 05/08/20 15:27 [From Compazine] prochlorperazine maleate Allergy Other Verified 05/08/20 15:27 [From Compazine] Home Meds: Home Meds Acetaminophen 500 mg PO Q6H 08/28/14 [History] Albuterol Sulfate 1.25 mg INH Q4H PRN 08/28/14 [History] Albuterol Sulfate [Albuterol Sulfate HFA] 8.5 gm INH Q4H PRN 08/28/14 [History] Cyanocobalamin (Vitamin B-12) [Cyanocobalamin Injection] 1,000 mcg SQ ACDINNER 08/28/14 [History] Fluticasone Propionate [Flonase] 50 mcg INH DAILY 08/28/14 [History] Gabapentin [Neurontin] 600 mg PO TID 08/28/14 [History] Levothyroxine [Synthroid] 50 mcg DAILY 08/28/14 [History] diphenhydrAMINE [Benadryl] 75 mg PO DAILY 08/28/14 [History] Ondansetron [Zofran ODT] 4 mg PO Q6H 02/22/16 [History] Potassium Chloride [Klor-Con] 20 meq PO BID 02/22/16 [History] Aspirin/Acetaminophen/Caffeine [Excedrin Extra Strength Caplet] 1 each PO DAILY 03/23/20 [History] Linaclotide [Linzess] 72 mcg PO DAILY 03/23/20 [History] predniSONE [Prednisone] 10 mg PO BID 03/23/20 [History] Past Medical History Cardiovascular History: Reports: Blood Clots/VTE/DVT Other Cardiovascular History: low blood pressure Respiratory History: Reports: Asthma Gastrointestinal History: Reports: Gastritis, GERD, GI Bleed, Other (See Below) Other Gastrointestinal History: part of esophagus removed, part of small intestine removed 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: Musculoskeletal History: Reports: Osteoporosis Endocrine/Metabolic History: Reports: Hypothyroidism, Obesity/BMI 30+ (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.), Osteoporosis, Other (See Below) (Under weight) Hematologic History: Reports: B12 Deficiency Oncologic (Cancer) History: Reports: Leukemia - Past Surgical History HEENT Surgical History: Reports: Adenoidectomy, Tonsillectomy GI Surgical History: Reports: Bariatric Procedure (gastric bypass, complications followed by reversal.), Cholecystectomy, EGD, Other (See Below) (Feeding tube, gastrectomy and partial esophagectomy due to surgical complications of bypass.) Other GI Surgeries/Procedures: Spleenectomy; Gastrostomy Female Surgical History: Reports: Section, Tubal Ligation Social & Family History - Family History Family Medical History: Noncontributory - Tobacco Use Smoking Status *Q: Current Every Day Smoker Tobacco Use Within Last Twelve Months: Cigarettes - Caffeine Use Caffeine Use: Reports: Coffee - Living Situation & Occupation Living situation: Reports: , with Spouse Occupation: Unemployed Review of Systems - Review of Systems Review Of Systems: Comprehensive ROS is negative, except as noted in HPI. ED EXAM, GENERAL - Physical Exam Exam: See Below Exam Limited By: No Limitations General Appearance: Alert, No Apparent Distress, Anxious, Thin, Cachetic Eye Exam: Bilateral Eye: EOMI, PERRL Ears: Normal External Exam Nose: Normal Inspection, No Blood Throat/Mouth: Normal Lips, Normal Voice, No Airway Compromise. No: Normal Teeth Head: Atraumatic, Normocephalic Neck: Normal Inspection, Full Range of Motion Respiratory/Chest: No Respiratory Distress, No Accessory Muscle Use, Decreased Breath Sounds, Other (Left lateral chest wall tenderness with no visible bruising, swelling, or deformity.). No: Crackles, Rales, Rhonchi, Wheezing, Stridor Cardiovascular: Normal Peripheral Pulses, Regular Rate, Rhythm, No Edema GI/Abdominal: Soft, No Distention, Pelvis Stable, Abnormal Bowel Sounds (Hypoactive bowel sounds), Other (G-tube intact without sign of infection. Tube not patent per pt.). No: Guarding, Rigid, Rebound Back Exam: Normal Inspection. No: CVA Tenderness (L), CVA Tenderness (R), Vertebral Tenderness Extremities: Leg Pain (at left lateral hip). No: Joint Swelling Neurological: Alert, Oriented, No Motor/Sensory Deficits Psychiatric: Anxious, Flat Affect Skin Exam: Warm, Dry, Intact, Normal Color Course - Vital Signs Last Recorded V/S: Last Vital Signs Temp 97.3 F 05/08/20 15:28 Pulse 77 05/08/20 15:28 Resp 18 05/08/20 15:28 BP 107/42 L 05/08/20 15:28 Pulse Ox 100 05/08/20 15:28 - Orders/Labs/Meds Orders: Active Orders 24 hr Category Date Time Status Peripheral IV Care [RC] . DIRECTED Care 05/08/20 15:40 Active Sodium Chloride 0.9% [Normal Saline] 500 ml Med 05/08/20 15:45 Active IV .BOLUS Sodium Chloride 0.9% [Saline Flush] Med 05/08/20 15:40 Active 10 ml FLUSH ASDIRECTED PRN Peripheral IV Insertion Adult [OM.PC] Stat Oth 05/08/20 15:39 Ordered Medication Orders Sodium Chloride (Normal Saline) 500 mls @ 999 mls/hr IV .BOLUS FADI Last Admin: 05/08/20 16:16 Dose: 999 mls/hr Documented by: HEATH Sodium Chloride (Saline Flush) 10 ml FLUSH ASDIRECTED PRN PRN Reason: Keep Vein Open Last Admin: 05/08/20 16:18 Dose: 10 ml Documented by: HEATH Labs: Laboratory Tests 05/08/20 05/08/20 Range/Units 15:58 15:58 WBC 12.3 H (5.0-10.0) 10^3/uL RBC 4.00 L (4.2-5.4) 10^6/uL Hgb 12.9 (12.0-16.0) g/dL Hct 38.4 (37.0-47.0) % MCV 96.0 (80-100) fL MCH 32.3 (27.0-34.0) pg MCHC 33.6 (33.0-35.0) g/dL Plt Count 341 (150-450) 10^3/uL Neut % (Auto) 82.1 H (42.2-75.2) % Lymph % (Auto) 11.0 L (20.5-50.1) % [place] % (Auto) 6.7 (2-8) % Eos % (Auto) 0.1 L (1.0-3.0) % Baso % (Auto) 0.1 (0.0-1.0) % Sodium 142 (136-145) mmol/L Potassium 3.1 L D (3.5-5.1) mmol/L Chloride 100 (98-107) mmol/L Carbon Dioxide 38 H (21-32) mmol/L Anion Gap 7.1 (7-13) mEq/L BUN 13 (7-18) mg/dL Creatinine 0.93 (0.55-1.02) mg/dL Est Cr Clr Drug Dosing 36.90 mL/min Estimated GFR (MDRD) > 60 BUN/Creatinine Ratio 14.0 (No establ ref range) Glucose 70 L (74-99) mg/dL Calcium 8.9 (8.5-10.1) mg/dL Magnesium 2.1 (1.8-2.4) mg/dL Total Bilirubin 0.4 (0.2-1.0) mg/dL AST 31 (15-37) U/L ALT 35 (14-59) U/L Alkaline Phosphatase 218 H (46-116) U/L Total Protein 6.2 L (6.4-8.2) g/dL Albumin 3.3 L (3.4-5.0) g/dL Globulin 2.9 Albumin/Globulin Ratio 1.14 Amylase 36 (25-115) U/L Lipase 66 L (73-393) U/L Meds: Medications Generic Name Dose Route Start Last Admin Trade Name Freq PRN Reason Stop Dose Admin Sodium Chloride 500 mls @ 999 mls/hr 05/08/20 15:45 05/08/20 16:16 Normal Saline IV 999 mls/hr .BOLUS FADI Administration Sodium Chloride 10 ml 05/08/20 15:40 05/08/20 16:18 Saline Flush FLUSH 10 ml ASDIRECTED PRN Administration Keep Vein Open Discontinued Medications Generic Name Dose Route Start Last Admin Trade Name Freq PRN Reason Stop Dose Admin Hydromorphone HCl 0.5 mg 05/08/20 17:45 05/08/20 18:15 Dilaudid IVPUSH 05/08/20 17:46 0.5 mg ONETIME ONE Administration Potassium Chloride 10 meq/ 100 mls @ 100 mls/hr 05/08/20 16:30 05/08/20 18:15 Premix IV 05/08/20 17:29 100 mls/hr ONETIME ONE Administration Iopamidol 50 ml 05/08/20 16:35 Isovue-300 (61%) IVPUSH 05/08/20 16:36 ONETIME ONE Lidocaine HCl 30 ml 05/08/20 16:34 05/08/20 18:15 Xylocaine-Mpf 1% .XX 05/08/20 16:35 30 ml ONETIME ONE Administration Ondansetron HCl 4 mg 05/08/20 15:41 05/08/20 16:16 Zofran IV 05/08/20 15:42 4 mg ONETIME ONE Administration Pantoprazole Sodium 40 mg 05/08/20 17:45 05/08/20 18:15 Protonix Iv IVPUSH 05/08/20 17:46 40 mg ONETIME ONE Administration - Radiology Interpretation Free Text/Narrative:: Chest with ribs x-ray: No acute osseous process. See rad report. CT abdomen and pelvis: No evidence of solid abdominal organ injury. Acute left inferior pubic ramus fracture. Age indeterminate left ovarian venous thrombosis extending up into the left renal vein. See rad report. - Re-Assessments/Exams Free Text/Narrative Re-Assessment/Exam: 05/08/20 18:00 No beds avail[facility] at any of [facility] has a bed available and Dr. Zafar agrees to accept the pt. Departure - Departure Time of Disposition: 18:29 Disposition: DC/Tfer to [facility] 02 Condition: Fair Clinical Impression: Thrombosis of ovarian vein, Cachexia Fracture of left inferior pubic ramus Qualifiers: Encounter type: initial encounter Fracture type: closed Qualified Code(s): S32.592A - Other specified fracture of left pubis, initial encounter for closed fracture Acid reflux Qualifiers: Esophagitis presence: without esophagitis Qualified Code(s): K21.9 - Gastro- esophageal reflux disease without esophagitis - Discharge Information *PRESCRIPTION DRUG MONITORING PROGRAM REVIEWED*: Not Applicable *COPY OF PRESCRIPTION DRUG MONITORING REPORT IN PATIENT MARISOL: Not Applicable Forms: ED Department Discharge, Interfacility Transfer EMTALA Sepsis Event Note (ED) - Focused Exam Vital Signs: Vital Signs Temp Pulse Resp BP Pulse Ox 05/08/20 15:28 97.3 F 77 18 107/42 L 100 - My Orders Last 24 Hours: My Active Orders 05/08/20 15:39 Peripheral IV Insertion Adult [OM.PC] Stat 05/08/20 15:40 Peripheral IV Care [RC] . DIRECTED Sodium Chloride 0.9% [Saline Flush] 10 ml FLUSH ASDIRECTED PRN 05/08/20 15:45 Sodium Chloride 0.9% [Normal Saline] 500 ml IV .BOLUS - Assessment/Plan Last 24 Hours: My Active Orders 05/08/20 15:39 Peripheral IV Insertion Adult [OM.PC] Stat 05/08/20 15:40 Peripheral IV Care [RC] . DIRECTED Sodium Chloride 0.9% [Saline Flush] 10 ml FLUSH ASDIRECTED PRN 05/08/20 15:45 Sodium Chloride 0.9% [Normal Saline] 500 ml IV .BOLUS I have read and agree with the documentation that has been completed regarding this visit. By signing this record, I attest that the documentation was completed in my physical presence and is an accurate record of the encounter.
[2020-05-08 18:33] VITALS: BP 105/63
== END 2020-05-08 18:45 ==
LOC: DL.ED 14:44
DX: S32.592A Other specified fracture of left pubis, initial encounter for closed fracture (principal); K21.9 Gastro-esophageal reflux disease without esophagitis; I82.890 Acute embolism and thrombosis of other specified veins; R64 Cachexia; J45.909 Unspecified asthma, uncomplicated; E03.9 Hypothyroidism, unspecified; E66.9 Obesity, unspecified; F17.210 Nicotine dependence, cigarettes, uncomplicated; Z88.8 Allergy status to other drugs, medicaments and biological substances; Z88.1 Allergy status to other antibiotic agents; Z91.040 Latex allergy status; W18.30XA Fall on same level, unspecified, initial encounter
CPT/HCPCS: 36415; 71100; 74177; 80053; 82150; 83690; 83735; 85025; 96361; 96365; 96375; 99285; C9113; J1170; J2001; J2405; J3480; J7040; Q9967; 99284